=== PATIENT | male | born 1970 | race Caucasian/White ===

== ENCOUNTER 2019-01-24 11:34 | Emergency (ER) | payer OTHER ==
[2019-01-24 11:41] VITALS: BP 143/105
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
--- NOTE | 2019-01-24 12:25 | RADIOLOGY IMAGING REPORT ---
FACILITY: [facility] PATIENT NAME: Claudy Greco : 1970 MR: [id number] V: [id number] EXAM DATE: ORDERING PHYSICIAN: PAUL KAY TECHNOLOGIST: Location: [facility] Patient: Claudy Greco : 1970 Visit/Account:[id number] Date of Sevice: 01/24/2019 2 views right clavicle Indication: Fall with shoulder and hip pain Comparison: None available Findings: Oblique fracture through the mid clavicular shaft with approximately 1 shaft width displacement. Ther e is adjacent focal soft tissue density, likely representing a small hematoma. No additional fracture s are identified. Acromioclavicular joint is intact. Glenoid humeral joint is intact. IMPRESSION: Mid clavicular fracture with approximately one shaft width displacement and adjacent soft tissue noemí zenaida. Report Dictated By: Gustavo Mitchell MD at 01/24/2019 12:19 PM Report E-Signed By: Gustavo Mitchell MD at 01/24/2019 12:21 PM WSN:[id number]
--- NOTE | 2019-01-24 12:27 | RADIOLOGY IMAGING REPORT ---
FACILITY: [facility] [place] PATIENT NAME: Claudy Greco : 1970 MR: [id number] V: [id number] EXAM DATE: ORDERING PHYSICIAN: PAUL KAY TECHNOLOGIST: [place] [facility] [place] Patient: Claudy Greco : 1970 Visit/Account:[id number] Date of Sevice: 01/24/2019 HIP RIGHT Indication: Fall Comparison: None available Findings: There is no acute fracture or dislocation of the right hip. Mild degenerative changes left hip joint noted IMPRESSION: 1. No acute osseous abnormality right hip. Report Dictated By: Gustavo Mitchell MD at 01/24/2019 12:21 PM Report E-Signed By: Gustavo Mitchell MD at 01/24/2019 12:21 PM WSN:[id number]
[2019-01-24] MEDS ORDERED: TRAM-420 PO (12:40)
[2019-01-24] MEDS ORDERED: traMADol 50 MG TAB TH 2 TAB/BOTTLE PO ONE (12:45)
== END 2019-01-24 13:03 | disposition home or self-care (01) ==
LOC: ER 11:44
DX: S42.021A Displaced fracture of shaft of right clavicle, initial encounter for closed fracture (principal); S70.01XA Contusion of right hip, initial encounter; V29.3XXA Motorcycle rider (driver) (passenger) injured in unspecified nontraffic accident, initial encounter; Y92.524 Gas station as the place of occurrence of the external cause
CPT/HCPCS: 73000; 73502; 99283; C9399

== ENCOUNTER → 2019-01-24 | Outpatient (CLI) | payer OTHER ==
[~2019-01-24] MED LIST: TRAM-420 PO
== END ==
LOC: AMB 11:13
PROVIDERS: ATTEND Nurse Practitioner
DX: M25.511 Pain in right shoulder (principal); V28.4XXA Motorcycle driver injured in noncollision transport accident in traffic accident, initial encounter
CPT/HCPCS: A0425; A0427